=== PATIENT | male | born 1985 | race Caucasian/White ===

== ENCOUNTER 2016-09-03 18:22 | Emergency (ER) | payer MEDICAID ==
--- NOTE | 2016-09-03 19:11 | ED Physician Documentation ---
History of Present Illness - Stated complaint Stated Complaint: LT LEG PX - Chief complaint Chief Complaint: Ext Problem - History obtained from History obtained from: Patient - History of Present Illness Timing: How many weeks ago (1) Pain level max: 2 Pain level now: 2 Improved by: elevation Worsened by: walking - Additonal information Additional information: noted swelling to the L LE behind the knee. No injury. Review of Systems Constitutional: denies: Fever, Chills Respiratory: denies: Cough GI: denies: Abdominal Pain, Nausea, Vomiting, Diarrhea Skin: denies: Rash Musculoskeletal: denies: Neck pain, Back pain Neurologic: denies: Headache PD PAST MEDICAL HISTORY - Past Medical History Past Medical History: No - Past Surgical History Past Surgical History: No - Present Medications Home Medications: Ambulatory Orders Medication Instructions Recorded Confirmed Rivaroxaban [Xarelto] 15 mg PO BID #42 tablet 09/03/16 Rivaroxaban [Xarelto] 20 mg PO DAILY #30 tablet 09/03/16 - Allergies Allergies/Adverse Reactions: Allergies Allergy/AdvReac Type Severity Reaction Status Date / Time No Known Drug Allergies Allergy Verified 09/03/16 18:31 - Living Situation Living Situation: reports: With family Living Arrangement: reports: At home - Social History Does the pt have substance abuse?: No PD ED PE NORMAL - Vitals Vital signs reviewed: Yes - General General: Alert and oriented X 3, No acute distress - HEENT HEENT: Moist mucous membranes - Neck Neck: Supple, no meningeal sign - Cardiac Cardiac: RRR - Respiratory Respiratory: No respiratory distress, Clear bilaterally - Derm Derm: Warm and dry - Extremities Extremities: Other (LLE - no calf tenderness or cord. Mild TTP posterior knee. NVI.) - Neuro Neuro: Alert and oriented X 3 - Psych Psych: Normal mood, Normal affect Results - Vitals Vitals: Vital Signs - 24 hr 09/03/16 09/03/16 18:27 21:06 Temperature 36.5 C 36.7 C Heart Rate 91 61 Respiratory 17 18 Rate Blood Pressure 122/77 128/86 H O2 Saturation 100 99 Oxygen O2 Source Room air - Rads (name of study) duplex US LLE Radiology: Prelim report reviewed, EMP read contemporaneously, See rad report ( Nonocclusive mid to proximal popliteal vein thrombus. Remaining vessels are patent. Left leg edema noted. ) PD MEDICAL DECISION MAKING - ED course Complexity details: reviewed results, re-evaluated patient, considered differential, d/w patient, d/w crm consultant ED course: Patient is a 30-year-old male who presents to the emergency department with left lower extremity pain. Appears to have a nonocclusive mid to proximal popliteal vein thrombosis. Discussed the case with hematology on-call, Jose Rafael Kirby who recommends placing the patient on anticoagulation following up with his PCP. Patient counseled regarding signs and symptoms for which I believe and urgent re-evaluation would be necessary. Patient with good understanding of and agreement to plan and is comfortable going home at this time This document was made in part using voice recognition software. While efforts are made to proofread this document, sound alike and grammatical errors may occur. Departure - Departure Disposition: 01 Home, Self Care Clinical Impression: DVT (deep venous thrombosis) Qualifiers: DVT location: lower extremity Affected thrombotic vein of extremity: popliteal Laterality: left Chronicity: acute Qualified Code(s): I82.432 - Acute embolism and thrombosis of left popliteal vein Condition: Good Instructions: ED DVT Follow-Up: Provider,Other [Primary Care Provider] - Within 1 week Prescriptions: Rivaroxaban [Xarelto] 15 mg PO BID #42 tablet Rivaroxaban [Xarelto] 20 mg PO DAILY #30 tablet Comments: Take the xarelto 15mg by mouth twice daily for the next 21 days, then 20mg by mouth once daily after that. Follow up with your doctor for further evaluation. They may want to perform blood testing as well to look for reasons why the clot formed. It is a non-occlusive thrombus of your left popliteal vein. Return immediately if you develop black/tarry stools or red blood in your stool. Also return if you have trauma to your head or abdomen as this can cause bleeding, even with minor trauma. Discharge Date/Time: 09/03/16 21:22
--- NOTE | 2016-09-03 20:26 | Ultrasound Preliminary Report ---
Exam: US Duplex Ext Veins Left IMPRESSION: 1. Nonocclusive mid to proximal popliteal vein thrombus. 2. Remaining vessels are patent. 3. Left leg edema noted. RADIA The above critical findings were discussed with provider Demarco by Dr. Kassy Dietz at 20:24 hrs on 09/03/16. SITE ID: [id number]
--- NOTE | 2016-09-03 20:39 | Ultrasound Report ---
EXAM: LEFT LOWER EXTREMITY VENOUS ULTRASOUND EXAM DATE: 09/03/2016 08:09 p.m. CLINICAL HISTORY: Left lower extremity swelling and pain. COMPARISON: None. TECHNIQUE: Real-time sonographic vascular imaging was performed by the glassware engraver through the lower extremity utilizing both color-flow and Doppler spectral analysis. Multiple medicare sales representative static devonte ges were saved for review. FINDINGS: Common Femoral Vein (CFV): Normal. CFV-GSV Junction: Normal. Profunda Femoral Vein (PFV): Normal. Femoral Vein (FV) Prox: Normal. Femoral Vein (FV) Mid: Normal. Femoral Vein (FV) Dist: Normal. Popliteal Vein: Normal. Posterior Tibial Veins: Nonocclusive thrombus in the mid to proximal left popliteal vein. Peroneal Veins: Normal. Contralateral Side CFV: Normal. Other: Left leg edema noted. IMPRESSION: 1. Nonocclusive mid to proximal popliteal vein thrombus. 2. Remaining vessels are patent. 3. Left leg edema noted. RADIA The above critical findings were discussed with amado Pal by Dr. Kassy Dietz at 20:24 hrs on 09/03/16. Referring Provider Line: [phone] SITE ID: [id number]
[2016-09-03] MEDS ORDERED: RIVAROXABAN 15 MG TABLET PO STA (20:47)
[2016-09-03 21:07] VITALS: BP 128/86
== END 2016-09-03 21:22 | disposition home or self-care (01) ==
LOC: ED 18:22
DX: I82.432 Acute embolism and thrombosis of left popliteal vein (principal)
CPT/HCPCS: 93971; 99283; 99284; A9270